=== PATIENT | female | born 1940 | race Caucasian/White ===

== ENCOUNTER → 2019-04-12 11:56 | Outpatient (BNVA) | payer MEDICARE, SELFPAY | PROVIDERS: Family Provider Nurse Practitioner Family; Visit Provider Nurse Practitioner Family | DX: E53.8 Deficiency of other specified B group vitamins (principal); E83.42 Hypomagnesemia; E03.9 Hypothyroidism, unspecified | CPT/HCPCS: 80053; 82607; 83735; 84443; 85025 ==

== ENCOUNTER → 2019-07-04 10:11 | Outpatient (BNVA) | payer MEDICARE, SELFPAY | PROVIDERS: Family Provider Nurse Practitioner Family; Visit Provider Podiatrist Foot & Ankle Surgery | DX: G89.18 Other acute postprocedural pain (principal); S99.921A Unspecified injury of right foot, initial encounter; X58.XXXA Exposure to other specified factors, initial encounter | CPT/HCPCS: 73630; A6446 ==

== ENCOUNTER → 2019-07-10 11:35 | Outpatient (BNVA) | payer MEDICARE, SELFPAY | PROVIDERS: Family Provider Nurse Practitioner Family; Visit Provider Nurse Practitioner Family | DX: R53.83 Other fatigue (principal); E03.9 Hypothyroidism, unspecified; E55.9 Vitamin D deficiency, unspecified; I10 Essential (primary) hypertension; E53.8 Deficiency of other specified B group vitamins | CPT/HCPCS: 36415; 80053; 80061; 81001; 82306; 83036; 84443; 85025 ==

== ENCOUNTER → 2019-09-17 16:57 | Outpatient (BNVA) | payer MEDICARE, SELFPAY | PROVIDERS: Family Provider Nurse Practitioner Family; Visit Provider Nurse Practitioner Family | DX: E03.9 Hypothyroidism, unspecified (principal); J22 Unspecified acute lower respiratory infection; R53.1 Weakness | CPT/HCPCS: 71046 ==

== ENCOUNTER → 2019-10-12 11:14 | Outpatient (BNVA) | payer MEDICARE, SELFPAY | PROVIDERS: Family Provider Nurse Practitioner Family; Visit Provider Nurse Practitioner Family | DX: E03.9 Hypothyroidism, unspecified (principal); D64.9 Anemia, unspecified; R53.83 Other fatigue; E53.8 Deficiency of other specified B group vitamins; Z79.899 Other long term (current) drug therapy | CPT/HCPCS: 80053; 81003; 82270; 82607; 83036; 83550; 83921; 84443; 85025 ==

== ENCOUNTER → 2020-01-09 11:48 | Outpatient (BNVA) | payer MEDICARE, SELFPAY | PROVIDERS: Family Provider Nurse Practitioner Family; Visit Provider Nurse Practitioner Family | DX: N39.0 Urinary tract infection, site not specified (principal); A49.9 Bacterial infection, unspecified | CPT/HCPCS: 81003; 87086 ==

== ENCOUNTER → 2020-02-11 15:05 | Outpatient (BNVA) | payer MEDICARE, SELFPAY | PROVIDERS: Family Provider Nurse Practitioner Family; Visit Provider Family Medicine | DX: R06.2 Wheezing (principal) | CPT/HCPCS: 71046 ==

== ENCOUNTER 2020-02-18 18:29 | Emergency (ER) | payer MEDICARE, SELFPAY ==
[2020-02-18 18:34] VITALS: BP 177/80; PULSE 69; RESP 18; TEMP 36.4; O2SAT 96; BMI 24.1
--- NOTE | 2020-02-18 23:04 | ED_ITS ---
HPI - Extremity Problem General: Chief complaint: Extremity Problem,Nontraumatic Stated complaint: possible blood clot Time Seen by Provider: 02/18/20 22:07 History of Present Illness: HPI Narrative: Patient is an 80-year-old female comes to the ED with left leg pain. Pain started a couple days ago. She denies any trauma or accident to cause pain. She says she has a history of some lower back pain and with the last couple days started developing pain in left leg. She says the pain is a burning pain and it radiates down left leg. Patient is able to ambulate on the leg but it does cause some pain and discomfort. Denies any history of PE or blood clots and is not currently on any blood thinner. Associated symptoms: Deny chest pain, fever(s) or rash Review of Systems Const: Denies: fever(s), chills or fatigue Eyes: Denies: change in vision or eye discomfort ENMT: Denies: throat pain, odynophagia, nasal discharge or nasal congestion Card: Denies: chest pain, palpitations, edema, swelling of feet/ankles, dyspnea on exertion or orthopnea Resp: Denies: dyspnea, productive cough or non-productive cough GI: Denies: abdominal pain, nausea, vomiting, diarrhea, constipation or hematochezia : Denies: flank pain, dysuria or hematuria Musc: Reports: back pain and extremity pain (Left leg pain); Denies: neck pain or extremity swelling Skin/Breast: Denies: rash or new lesions Neuro: Denies: headache(s), numbness in extremities or weakness in extremities [facility] ED PFSH: Medical History Anemia Depression Exposure to COVID-19 virus Fatigue Hypothyroid Inflammation of toenail of left foot Lower respiratory infection Medication management Need for pneumococcal vaccination Otitis externa Shortness of breath UTI (urinary tract infection), bacterial Vitamin B 12 deficiency Physical Exam Const: COMMON NORMALS: patient oriented x3 HENMT: COMMON NORMALS: normocephalic HEAD & SCALP: normocephalic MOUTH: Normal oral and palatal mucosa present THROAT: posterior oropharynx normal and uvula midline Neck/C-Spine: COMMON NORMALS: supple GENERAL: Yes normal visual inspection Resp: COMMON NORMALS: normal respiratory effort, No retractions, No use of accessory muscles and clear to auscultation bilaterally AUSCULTATION: clear to auscultation bilaterally Cardio: COMMON NORMALS: regular rate, regular rhythm, S1 normal heart sound present, S2 normal heart sound present, No gallops present (Cardio), No clicks present (Cardio), No murmurs present (Cardio) and Peripheral pulses 2+ throughout RATE: regular rate RHYTHM: regular rhythm HEART SOUNDS: S1 normal heart sound present and S2 normal heart sound present PERIPHERAL PULSES: Peripheral pulses 2+ throughout GI: COMMON NORMALS: Normal to inspection, nondistended, normoactive bowel sounds present, Soft to palpation, non-tender and no masses PALPATION: Yes Soft to palpation : COMMON NORMALS: Yes no CVA tenderness BLADDER/KIDNEY EXAM: Yes no CVA tenderness Back/Pelvis: COMMON NORMALS: no CVA tenderness LUMBAR SPINE/LOWER BACK: Yes pain with ROM, No lumbar spinal tenderness, Yes paraspinal muscle tenderness and Yes straight leg raise positive left Extremity: COMMON NORMALS: normal to inspection, no calf tenderness and no pedal edema Neuro: COMMON NORMALS: patient oriented x3 and moves all extremities Skin: GENERAL SKIN EXAM: dry skin Course Vital Signs: Vital signs: Vital Signs Temperature 97.5 F L 02/18/20 18:34 Pulse Rate 90 02/19/20 01:18 Respiratory Rate 16 02/19/20 01:18 Blood Pressure 121/69 02/19/20 01:18 Pulse Oximetry 99 02/19/20 01:18 MDM - Extremity (Nontraumatic) MDM Narrative: Medical decision making narrative: Patient is an 80-year-old female comes to the ED left leg pain. Patient denies any traumatic injury or accident to cause acute pain. She does states she has some lower back pain chronically just turned developing the radiating down left leg pain. Exam findings suggestive of lumbar radiculopathy. Ultrasound venous duplex of left lower extremity showed no DVTs or blood clot. Patient was diagnosed lumbar radiculopathy and she was discharged with a prescription for Medrol Dosepak, cyclobenzaprine, and ibuprofen 800s. She was told to apply heat or cold pack on lower back and to stretch lower back daily. Return to ED precautions given. Follow-up with PCP in 7 to 10 days. Patient understood agree with plan. Imaging Data^: US Vascular: Attestation: I personally reviewed and interpreted this imaging study as follows: Radiologist's impression: Left lower extremity venous duplex?prelim report no DVTs or blood clots seen. Discharge Plan Discharge Patient Disposition: Home Clinical Impression: Lumbar radiculopathy Condition: Stable Prescriptions: New methylprednisolone 4 mg tablets,dose pack See Rx Instructions .ROUTE .COMPLEX Qty: 21 RF: 0 cyclobenzaprine 5 mg tablet 5 mg PO TID PRN (Reason: muscle spasm) Qty: 30 RF: 0 ibuprofen 800 mg tablet 800 mg PO Q8H PRN (Reason: pain) Qty: 21 RF: 0 No Action pneumococcal 23-pradip ps vaccine 25 mcg/0.5 mL solution 0.5 ml IM ONCE Qty: 1 RF: 0 prednisone 20 mg tablet 20 mg PO BID 5 Days Qty: 10 RF: 0 levofloxacin 750 mg tablet 750 mg PO DAILY 6 Days Qty: 6 RF: 0 levothyroxine 100 mcg capsule 100 mcg PO DAILY 30 Days Qty: 30 RF: 2 Discharge Orders: Discharge ED (Routine); Ordered 02/19/20 Ordered By: Masoud Hood Discharge Diet: Regular Discharge Activity: Increase activity as tolerated Patient Instructions: Lumbar Radiculopathy (ED) Activity Restrictions/Additional Instructions: Follow-up with medical provider as directed in 7 to 10 days for reevaluation. Stretch and massage lower back daily. Apply heat or cold pack on lower back to help with symptoms as well. Take medications as prescribed. Cyclobenzaprine is a muscle relaxer and can cause some drowsiness so take at night before bed. Use muscle relaxer with caution during the day. Return to the ER or your medical provider if condition worsens. Please read and understand discharge instructions. If any questions, please ask. Coding Level of Care Code ED [employer] for Tc Fwd Exam Comprehensive
[2020-02-18] MEDS: ketorolac 30 mg/mL INJ 60 MG IM (23:57)
--- NOTE | 2020-02-19 | USCV_ITS ---
Beatriz Reyes Age: 80 Gender: F : 1940 Exam Date: 02/19/2020 00:24 Ordering Phys: Masoud Hood Technologist: Genna Cain Exam Location: [facility] Indication: LT LEG PAIN HISTORY: Lower extremity pain. PROCEDURES: Venous duplex imaging was performed in only the left lower extremity. The following venous structures were evaluated: common femoral vein, profunda vein, proximal portion of the greater saphenous vein, superficial femoral vein, and the popliteal vein. In addition, the posterior tibial and peroneal trunk were evaluated. FINDINGS: Normal 2-D Doppler and augmentation and compressibility throughout the lower extremity venous structures. Additional imaging through the proximal calf veins also reveals no thrombus. Limited evaluation of the greater saphenous vein is patent with no thrombus.. CONCLUSIONS No evidence of left lower extremity DVT. Srinivas Ellis MD (Electronically Signed) Final Date: 19 February 2020 12:40 S
[2020-02-19 01:18] VITALS: BP 121/69; PULSE 90; RESP 16; O2SAT 99
== END 2020-02-19 01:18 | disposition home or self-care (01) ==
PROVIDERS: Emergency Provider Physician Assistant
DX: M54.16 Radiculopathy, lumbar region (principal)
CPT/HCPCS: 12345; 93971; 96372; 99281; 99283; J1885; J2930

== ENCOUNTER → 2020-06-03 11:00 | Outpatient (BNVA) | payer MEDICARE, SELFPAY | PROVIDERS: PCP Nurse Practitioner Family; Visit Provider Nurse Practitioner Family | DX: M54.5 Low back pain (principal); M54.6 Pain in thoracic spine; E03.9 Hypothyroidism, unspecified | CPT/HCPCS: 80053; 84439; 84443; 85025 ==

== ENCOUNTER → 2020-06-12 09:29 | Outpatient (BNVA) | payer MEDICARE, SELFPAY | PROVIDERS: PCP Nurse Practitioner Family; Visit Provider Nurse Practitioner Family | DX: M54.5 Low back pain (principal); M54.6 Pain in thoracic spine; G89.29 Other chronic pain | CPT/HCPCS: 72072; 72114 ==

== ENCOUNTER → 2020-08-15 12:15 | Outpatient (BNVA) | payer MEDICARE, SELFPAY | PROVIDERS: PCP Nurse Practitioner Family; Visit Provider Nurse Practitioner Family | DX: K13.79 Other lesions of oral mucosa (principal); K11.20 Sialoadenitis, unspecified | CPT/HCPCS: 87070; 87077 ==

== ENCOUNTER → 2020-12-23 11:33 | Outpatient (BNVA) | payer MEDICARE, SELFPAY | PROVIDERS: PCP Nurse Practitioner Family; Visit Provider Nurse Practitioner Family | DX: R53.83 Other fatigue (principal); D64.9 Anemia, unspecified; E53.8 Deficiency of other specified B group vitamins; E03.9 Hypothyroidism, unspecified; Z79.899 Other long term (current) drug therapy; E55.9 Vitamin D deficiency, unspecified; E78.5 Hyperlipidemia, unspecified; I49.9 Cardiac arrhythmia, unspecified; R31.9 Hematuria, unspecified | CPT/HCPCS: 80053; 80061; 81003; 82306; 82607; 82728; 82746; 83036; 83550; 83921; 84443; 85025; 86038; 86140; 87086 ==

== ENCOUNTER → 2021-01-28 10:46 | Outpatient (BNVA) | payer MEDICARE, SELFPAY | PROVIDERS: PCP Nurse Practitioner Family; Visit Provider Internal Medicine | DX: R76.8 Other specified abnormal immunological findings in serum (principal); M25.50 Pain in unspecified joint; M48.10 Ankylosing hyperostosis [Forestier], site unspecified; E03.9 Hypothyroidism, unspecified; Z11.59 Encounter for screening for other viral diseases; Z87.891 Personal history of nicotine dependence | CPT/HCPCS: 99204 ==

== ENCOUNTER 2021-01-28 12:21 | Outpatient (CLI) | payer MEDICARE, SELFPAY ==
--- NOTE | 2021-01-28 12:40 | XRR_ITS ---
PROCEDURE INFORMATION: Exam: XR Cervical Spine Exam date and time: 01/28/2021 12:40 PM Age: 80 years old Clinical indication: Neck pain; Additional info: M25.50 - pain in unspecified joint TECHNIQUE: Imaging protocol: XR of the cervical spine. Views: 2 or 3 views. COMPARISON: CR XR thoracic spine 3V* [id number] 06/12/2020 9:44 AM FINDINGS: Bones/joints: There is moderate osteoarthritis with multilevel intervertebral disc space narrowing and bone spurs present. No acute fracture. Normal alignment. There is no significant instability with flexion and extension maneuvers. Soft tissues: Unremarkable. XR/XR cervical spine fl/ex [id number] IMPRESSION: 1. No acute findings. 2. Moderate osteoarthritis
--- NOTE | 2021-01-28 12:40 | XRR_ITS ---
PROCEDURE INFORMATION: Exam: XR Left Shoulder Exam date and time: 01/28/2021 12:40 PM Age: 80 years old Clinical indication: Pain; Shoulder; Left; Additional info: M25.50 - pain in unspecified joint TECHNIQUE: Imaging protocol: XR Left shoulder. Views: 2 or more views. COMPARISON: CR XR chest 2V* [id number] 02/11/2020 3:18 PM FINDINGS: Bones/joints: There is a chronic deformity involving the left humeral head. No acute bony abnormalities seen. Soft tissues: Normal. XR/XR shoulder LT min 2V* [id number] IMPRESSION: 1. No acute findings. 2. Chronic bone deformity left humeral head
--- NOTE | 2021-01-28 12:40 | XR_ITS ---
WS: [id number] Exam: XR hand LT 2V [id number] Date/Time of Exam: 01/28/2021 12:55 PM Reason For Exam: M25.50 - Pain in unspecified joint No fracture or dislocation. Moderate degenerative changes in the IP joints. Degenerative change at th e CMC joint of the thumb. No soft tissue foreign bodies are seen. XR/XR hand LT 2V [id number] IMPRESSION: 1. Degenerative changes as noted above. 2. No fracture or dislocation.
[2021-01-28 13:49] LABS: C Reactive Protein 2.3 mg/L (0.0-4.9); Complement C3 139 mg/dL (90-180); Phosphorus 2.6 mg/dL (2.5-4.5)
[2021-01-28 13:56] LABS: Free T4 Free Thyroxine 1.58 ng/dL (0.82-1.77)
[2021-01-28 14:24] LABS: Hepatitis B Core AB, Total Non-Reactive (Nonreactive); Hepatitis B Surface Antigen Non-Reactive (Nonreactive); Hepatitis C Virus Antibody Non-Reactive (Nonreactive)
[2021-01-28 14:35] LABS: Calcium 9.6 mg/dL (8.5-10.5)
[2021-01-28 15:25] LABS: Parathyroid Hormone 83.9 pg/mL (15-65)
[2021-01-29 11:46] LABS: COMPLEMENT COMPONENT C3C 136 mg/dL; COMPLEMENT COMPONENT C4C 26 mg/dL
[2021-01-29 13:37] LABS: THYROID PEROXIDASE ANTIBODIES <1 IU/mL (<9)
[2021-01-29 15:29] LABS: Erythrocyte Sedimentation Rate 6 mm/hr (0-15)
[2021-01-29 16:03] LABS: Cyclic Citrullinated Peptide <16 UNITS
[2021-01-29 16:37] LABS: JO-1 ANTIBODY <1.0 NEG AI (<1.0 NEG); RNP ANTIBODY <1.0 NEG AI (<1.0 NEG); SCL-70 ANTIBODY <1.0 NEG AI (<1.0 NEG); SJOGREN'S ANTIBODY (SS-A) <1.0 NEG AI (<1.0 NEG); SM ANTIBODY <1.0 NEG AI (<1.0 NEG); SS-B <1.0 NEG AI (<1.0 NEG)
[2021-01-30 12:23] LABS: COMPLEMENT, TOTAL (CH50) >60 U/mL (31-60)
[2021-01-30 17:06] LABS: ANA SCREEN, IFA POSITIVE (NEGATIVE); ANA TITER > OR = 1:1280 titer; Anti-Nuclear AB Pattern #3 Nuclear, Speckled
[2021-01-31 17:22] LABS: DNA AB (DS) CRITHIDIA,IFA NEGATIVE (NEGATIVE)
== END 2021-01-28 12:22 | disposition home or self-care (01) ==
LOC: RAD 12:32
PROVIDERS: PCP Nurse Practitioner Family; Visit Provider Internal Medicine
DX: E55.9 Vitamin D deficiency, unspecified (principal); M25.50 Pain in unspecified joint; R76.8 Other specified abnormal immunological findings in serum; E03.9 Hypothyroidism, unspecified; Z11.59 Encounter for screening for other viral diseases
CPT/HCPCS: 36415; 72040; 73030; 73120; 82310; 83970; 84100; 84439; 85651; 86140; 86160; 86162; 86200; 86235; 86255; 86376; 86431; 86704; 86803; 87340

== ENCOUNTER → 2021-02-12 14:14 | Outpatient (BNVA) | payer MEDICARE, SELFPAY | PROVIDERS: PCP Nurse Practitioner Family; Referring Provider Internal Medicine; Visit Provider Anesthesiology Pain Medicine | DX: G89.29 Other chronic pain (principal); M51.16 Intervertebral disc disorders with radiculopathy, lumbar region; M47.816 Spondylosis without myelopathy or radiculopathy, lumbar region; M25.50 Pain in unspecified joint; M48.10 Ankylosing hyperostosis [Forestier], site unspecified; R76.8 Other specified abnormal immunological findings in serum; Z79.899 Other long term (current) drug therapy | CPT/HCPCS: 99205 ==

== ENCOUNTER → 2021-02-27 09:25 | Outpatient (BNVA) | payer MEDICARE, SELFPAY | PROVIDERS: PCP Nurse Practitioner Family; Visit Provider Internal Medicine | DX: R76.8 Other specified abnormal immunological findings in serum (principal); E34.9 Endocrine disorder, unspecified; E03.9 Hypothyroidism, unspecified; E55.9 Vitamin D deficiency, unspecified; M48.10 Ankylosing hyperostosis [Forestier], site unspecified | CPT/HCPCS: 99214 ==

== ENCOUNTER → 2021-03-23 16:13 | Outpatient (BNVA) | payer MEDICARE, SELFPAY | PROVIDERS: PCP Nurse Practitioner Family; Visit Provider Nurse Practitioner Family | DX: E03.9 Hypothyroidism, unspecified (principal) | CPT/HCPCS: 80053; 84443; 85025 ==

== ENCOUNTER → 2021-04-13 10:43 | Outpatient (BNVA) | payer MEDICARE, SELFPAY | PROVIDERS: PCP Nurse Practitioner Family; Visit Provider Nurse Practitioner Family | DX: M25.50 Pain in unspecified joint (principal); R76.8 Other specified abnormal immunological findings in serum; Z79.899 Other long term (current) drug therapy | CPT/HCPCS: 80053; 85025; 85651; 86140 ==

== ENCOUNTER → 2021-09-21 14:36 | Outpatient (BNVA) | payer MEDICARE, SELFPAY | PROVIDERS: PCP Nurse Practitioner Family; Visit Provider Nurse Practitioner | DX: R53.83 Other fatigue (principal); R79.89 Other specified abnormal findings of blood chemistry | CPT/HCPCS: 80053; 81000; 84443; 85025; 87086 ==

== ENCOUNTER → 2022-04-21 11:20 | Outpatient (BNVA) | payer MEDICARE, SELFPAY | PROVIDERS: PCP Nurse Practitioner Family; Visit Provider Nurse Practitioner Family | DX: E03.9 Hypothyroidism, unspecified (principal); L60.3 Nail dystrophy; Z79.899 Other long term (current) drug therapy; H69.80 Other specified disorders of Eustachian tube, unspecified ear | CPT/HCPCS: 80053; 80061; 84443; 85025 ==

== ENCOUNTER 2022-12-11 15:39 | Emergency (ER) | payer MEDICARE, SELFPAY ==
[2022-12-11 15:56] VITALS: BP 171/79; PULSE 67; RESP 15; TEMP 36.7; O2SAT 97
--- NOTE | 2022-12-11 17:01 | CTR_ITS ---
PROCEDURE INFORMATION: Exam: CT Head Without Contrast Exam date and time: 12/11/2022 5:44 PM Age: 82 years old Clinical indication: Dizziness and visual disturbance; Additional info: Dizzy, difficulty walking, blurred vision, HTN TECHNIQUE: Imaging protocol: Computed tomography of the head without contrast. Radiation optimization: All CT scans at this facility use at least one of these dose optimization techniques: automated exposure control; mA and/or kV adjustment per patient size (includes targeted exams where dose is matched to clinical indication); or iterative reconstruction. REPORTING DATA: Count of CT and Cardiac NM exams in prior 12 months: This patient has received 0 known CTs and 0 known cardiac nuclear medicine studies in the 12 months prior to the current study. COMPARISON: CR XR cervical spine fl/ex [id number] 01/28/2021 12:45 PM RADIATION DOSE METRICS: Total DLP (mGy-cm): 1118.3 FINDINGS: Brain: Moderate diffuse cortical volume loss. Severe hypodensities in supratentorial periventricular and subcortical white matter, consistent with microangiopathy. No intracranial hemorrhage. Cerebral ventricles: No ventriculomegaly. Paranasal sinuses: Visualized sinuses are unremarkable. No fluid levels. Mastoid air cells: Visualized mastoid air cells are well aerated. Orbital cavities: Prior cataract surgery. Nasal cavity: Rightward deviation of the bony nasal septum. Bones/joints: No fracture. Soft tissues: Unremarkable. Vasculature: No hyperdense artery. CT/CT head wo con* [id number] IMPRESSION: No acute intracranial abnormality.
--- NOTE | 2022-12-11 17:01 | ECG_ITS ---
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 Measurements Intervals Riner Rate: 59 P: 23 AL: 228 QRS: -29 QRSD: 106 T: 52 QT: 417 QTc: 414 Interpretive Statements SINUS BRADYCARDIA WITH FIRST DEGREE AV BLOCK SEPTAL MYOCARDIAL INFARCTION , OF INDETERMINATE AGE [40+ ms Q WAVE IN V1/V2] Compared to ECG 06/16/2018 20:59:07 Myocardial infarct finding now present Electronically Signed On 12-12-2022 6:04:40 CDT by Tiffany Gordon M.D. [id number]
--- NOTE | 2022-12-11 17:01 | XRR_ITS ---
PROCEDURE INFORMATION: Exam: XR Chest Exam date and time: 12/11/2022 5:19 PM Age: 82 years old Clinical indication: Other: HTN; Dizziness; AMS; Prior surgery; Surgery date: 6+ months; Surgery type: Left mastectomy TECHNIQUE: Imaging protocol: Radiologic exam of the chest. Views: 1 view. COMPARISON: CR XR chest 2V* [id number] 02/11/2020 3:18 PM FINDINGS: Lungs: Calcified granulomas in both lungs. Changes of emphysema. No consolidation. Pleural spaces: Unremarkable. No pleural effusion. No pneumothorax. Heart/Mediastinum: Unremarkable. No cardiomegaly. Bones/joints: Old left rib fractures. Soft tissues: Multiple radiopaque densities projecting over the upper chest are presumably artifacts in the patient's clothing. Left mastectomy. XR/XR chest 1V portable [id number] IMPRESSION: No acute findings.
[2022-12-11 18:06] LABS: INR 0.95 (0.8-1.2)
[2022-12-11 18:10] VITALS: BP 180/80; PULSE 62; RESP 16; O2SAT 98
--- NOTE | 2022-12-11 18:13 | ED_ITS ---
HPI - General Adult General: Chief complaint: General Medical Stated complaint: possible ams Time Seen by Provider: 12/11/22 17:01 History of Present Illness: Patient presents to the ER for possible TIA/altered mental status. Earlier this morning patient was talking and she was speaking within Slovak accent and then everything started coming out gibberish. Patient family said this lasted all approximately 30 minutes or so before patient resolved and started speaking normally. This was about 3 hours ago. Patient has no history of TIAs or CVAs in the past. Patient is totally back to normal with no neurodeficits noted now. Patient does take 81 mg aspirin daily as well as a atorvastatin 40 mg nightly. Patient is on levothyroxine for thyroid. Patient has been having high blood pressure during her ER stay with no history of it and is on no blood pressure medicine. [facility] ED PFSH: Medical History (Updated 12/11/22 @ 20:12 by Sanjiv Paz DO) Anemia Arrhythmia Arthralgia Centromere antibody positive Depression DISH (diffuse idiopathic skeletal hyperostosis) Exposure to COVID-19 virus Facet arthropathy, lumbar Fatigue Hematuria Hx of breast cancer Hyperlipemia Hypothyroid Increased PTH level Inflammation of toenail of left foot Low back pain potentially associated with radiculopathy Lower respiratory infection Lower respiratory infection Lumbar disc disease with radiculopathy Medication management Need for pneumococcal vaccination Onychodystrophy Otitis externa Positive antinuclear antibody Shortness of breath Sialadenitis Thoracic back pain UTI (urinary tract infection), bacterial Vitamin B 12 deficiency Vitamin D deficiency Surgical History Hx of left mastectomy Family History Family/Other Stroke Denies family history of Rheumatoid arthritis Diabetes Lupus Hyperlipidemia Heart attack Cancer Hypertension Social History Smoking and tobacco/nicotine status: never used tobacco/nicotine Second hand smoke exposure: No Alcohol intake: never Physical Exam Const: COMMON NORMALS: no acute distress, average body habitus, patient oriented x3, no limitations, healthy appearing, alert and well nourished HENMT: COMMON NORMALS: normocephalic, atraumatic, external ears normal, Normal external nose present, moist oral mucous membranes and oropharynx normal; hearing grossly not normal bilaterally (Hard of hearing) HEAD & SCALP: normocephalic and atraumatic NOSE: Normal external nose present EXTERNAL EAR: Yes external ears normal Eye: COMMON NORMALS: Equal, round and reactive pupils present, EOMs intact bilaterally, conjunctivae normal and no scleral icterus CONJUNCTIVA: Yes conjunctivae normal PUPIL: Yes Equal, round and reactive pupils present Neck/C-Spine: COMMON NORMALS: full ROM, no lymphadenopathy, supple, no meningeal signs, no JVD and Thyroid normal THYROID: Thyroid normal Lymph: LYMPHATIC: no lymphadenopathy noted Chest: COMMONS NORMALS: normal inspection of the chest and normal palpation of entire chest wall Resp: COMMON NORMALS: normal respiratory effort, No retractions, No use of accessory muscles and clear to auscultation bilaterally AUSCULTATION: clear to auscultation bilaterally Cardio: COMMON NORMALS: no JVD, regular rate, regular rhythm, S1 normal heart sound present, S2 normal heart sound present, No gallops present (Cardio), No clicks present (Cardio), No murmurs present (Cardio) and No rub (Cardio) RATE: regular rate RHYTHM: regular rhythm HEART SOUNDS: S1 normal heart sound present and S2 normal heart sound present GI: COMMON NORMALS: Normal to inspection, nondistended, normoactive bowel sounds present, Soft to palpation, non-tender, No hepatosplenomegaly present and no masses PALPATION: Yes Soft to palpation and Yes No hepatosplenomegaly present : COMMON NORMALS: Yes no CVA tenderness BLADDER/KIDNEY EXAM: Yes no CVA tenderness Back/Pelvis: COMMON NORMALS: no CVA tenderness Neuro: COMMON NORMALS: patient oriented x3 SENSORIUM/ORIENTATION: Yes alert MENINGEAL SIGNS: Yes no meningeal signs Course Vital Signs: Vital signs: Vital Signs Temperature 98.0 F 12/11/22 15:56 Pulse Rate 55 L 12/11/22 19:59 Respiratory Rate 16 12/11/22 19:59 Blood Pressure 155/75 12/11/22 19:59 Pulse Oximetry 99 12/11/22 19:59 Oxygen Delivery Me thod Room Air 12/11/22 15:56 MDM - General Adult Medical Decision Making Presents to the ER with what sounds like a TIA type episode. Chest x-ray was negative head CT was negative lab work was negative except for urine which could show a mild UTI however patient just finished antibiotics and family wants to wait for culture. I think this is acceptable. Patient will be discharged and referred back to her family practice doctor for potential need for MRI and/or neurology consult. Differential Diagnosis TIA, CVA, UTI, hypertensive encephalopathy, Medical Records I reviewed the patient's medical records. Lab Data I reviewed the patient's lab results. 12/11/22 18:55 12/11/22 17:32 Radiology Impressions Chest X-Ray 12/11/22 17:01 IMPRESSION: No acute findings. Head CT 12/11/22 17:01 IMPRESSION: No acute intracranial abnormality. Laboratory Results WBC 9.45 10^3/uL (3.29-11.43) 12/11/22 18:55 Corrected WBC Cancelled 12/11/22 17:32 RBC 4.70 10^6/uL (3.85-5.65) 12/11/22 18:55 Hgb 14.00 g/dL (11.27-16.99) 12/11/22 18:55 Hct 43.2 % (36-47) 12/11/22 18:55 MCV 91.9 fl (85-98) 12/11/22 18:55 MCH 29.8 pg (27-33) 12/11/22 18:55 MCHC 32.4 g/dL (30-55) 12/11/22 18:55 RDW 13.1 % (12.1-15.1) 12/11/22 18:55 Plt Count 232 10^3/cmm (157-399) 12/11/22 18:55 MPV 9.2 fL (7.4-10.4) 12/11/22 18:55 Gran % Cancelled 12/11/22 17:32 Neut % (Auto) 56.6 % 12/11/22 18:55 Lymph % (Auto) 31.4 % 12/11/22 18:55 [place] % (Auto) 8.1 % 12/11/22 18:55 Eos % (Auto) 3.0 % 12/11/22 18:55 Baso % (Auto) 0.7 % 12/11/22 18:55 Neut # (Auto) 5.34 10^3/uL (1.8-7.7) 12/11/22 18:55 Lymph # (Auto) 3.0 10^3/uL (0.8-4.8) 12/11/22 18:55 [place] # (Auto) 0.8 10^3/uL (0.2-0.9) 12/11/22 18:55 Eos # (Auto) 0.3 10^3/uL (0.0-0.8) 12/11/22 18:55 Baso # (Auto) 0.1 10^3/uL (0.0-0.1) 12/11/22 18:55 Absolute Gran (auto) Cancelled 12/11/22 17:32 Nucleated RBC % (auto) 0 % 12/11/22 18:55 Nucleated RBCs # 0.0 /100WBC 12/11/22 18:55 PT 13.00 SECONDS (12.1-14.9) 12/11/22 17:32 INR 0.95 (0.8-1.2) 12/11/22 17:32 Sodium 137 mmol/L (136-145) 12/11/22 17:32 Potassium 4.0 mmol/L (3.5-5.1) 12/11/22 17:32 Chloride 103 mmol/L (98-107) 12/11/22 17:32 Carbon Dioxide 25 mmol/L (22-29) 12/11/22 17:32 Anion Gap 13.0 (5-19) 12/11/22 17:32 BUN 14 mg/dL (8-23) 12/11/22 17:32 Creatinine 0.7 mg/dL (0.5-0.9) 12/11/22 17:32 GFR Calculation Not Reportable 12/11/22 17:32 Glucose 81 mg/dL (65-115) 12/11/22 17:32 Calculated Osmolality 284 mOsm/kg (285-295) L 12/11/22 17:32 Calcium 10.2 mg/dL (8.5-10.5) 12/11/22 17:32 Magnesium 2.2 mg/dL (1.7-2.3) 12/11/22 17:32 Total Bilirubin 0.5 mg/dL (0.15-1.2) 12/11/22 17:32 AST 17 U/L (0-32) 12/11/22 17:32 ALT 11 U/L (0-33) 12/11/22 17:32 Alkaline Phosphatase 72 U/L (35-105) 12/11/22 17:32 C-Reactive Protein 6.7 mg/L (0.0-4.9) H 12/11/22 17:32 Total Protein 6.9 g/dL (6.6-8.7) 12/11/22 17:32 Albumin 4.0 g/dL (3.5-5.2) 12/11/22 17:32 Globulin 2.9 g/dL (1.3-4.6) 12/11/22 17:32 TSH 1.06 uIU/mL (0.27-4.20) 12/11/22 17:32 Urine Color Yellow (Yellow) 12/11/22 15:54 Urine Appearance Clear (CLEAR) 12/11/22 15:54 Urine pH 6.5 (5-7) 12/11/22 15:54 Ur Specific [place] 1.010 (1.005-1.030) 12/11/22 15:54 Urine Protein Neg (Negative) 12/11/22 15:54 Urine Glucose (UA) Norm (Normal) 12/11/22 15:54 Urine Ketones Negative (Negative) 12/11/22 15:54 Urine Blood 2+ (Negative) H 12/11/22 15:54 Urine Nitrate Negative (Negative) 12/11/22 15:54 Urine Bilirubin Neg (Negative) 12/11/22 15:54 Urine Urobilinogen Norm mg/dL (Negative) 12/11/22 15:54 Ur Leukocyte Esterase 1+ (Negative) H 12/11/22 15:54 Urine RBC Rare /hpf (0-2) 12/11/22 15:54 Urine WBC 5-10 /hpf (0-5) H 12/11/22 15:54 Ur Squamous Epith Cells 0-4 /hpf (0-5) H 12/11/22 15:54 Amorphous Sediment Not Reportable 12/11/22 15:54 Urine Bacteria Trace /hpf (NONE) 12/11/22 15:54 Urine Mucus Trace /hpf 12/11/22 15:54 All radiology interpretation(s) finalized by discharge EKG Data EKG 1: I personally reviewed and interpreted this EKG as follows: EKG interpretation date: 12/11/22 EKG interpretation time: 17:29 Prior EKG tracings: not available for review Interpretation: EKG showed ventricular rate 59 beats minute, ID interval 228, QRS duration 106, QTc of 416, sinus bradycardia with a first-degree AV block, Computer generated interpretation: Chest X-Ray 12/11/22 17:01 IMPRESSION: No acute findings. Head CT 12/11/22 17:01 IMPRESSION: No acute intracranial abnormality. Discharge Plan Discharge Patient Disposition: Home Clinical Impression: Brain TIA Hypothyroidism Qualifiers: Hypothyroidism type: unspecified Qualified Code(s): E03.9 - Hypothyroidism, unspecified Hypertension Qualifiers: Hypertension type: unspecified Qualified Code(s): I10 - Essential (primary) hypertension Urinary tract infection Qualifiers: Urinary tract infection type: site unspecified Hematuria presence: with hematuria Qualified Code(s): N39.0 - Urinary tract infection, site not specified Condition: Stable Prescriptions: No Action cephalexin 500 mg capsule 500 mg PO TID 5 Days Qty: 15 0RF atorvastatin 40 mg tablet 40 mg PO DAILY 90 Days Qty: 90 0RF aspirin 81 mg tablet,delayed release (DR/EC) 81 mg PO DAILY 90 Days Qty: 90 0RF cholecalciferol (vitamin D3) 25 mcg (1,000 unit) capsule 25 mcg PO DAILY 90 Days Qty: 90 0RF levothyroxine 112 mcg tablet See Rx Instructions .ROUTE .COMPLEX Qty: 90 1RF Dose Instruction: TAKE 1 TABLET BY MOUTH EVERY DAY Rx Instructions: TAKE 1 TABLET BY MOUTH EVERY DAY Discharge Orders: Discharge ED (Routine); Ordered 12/11/22 Ordered By: Sanjiv Paz Referrals: Ron Wright FNP [Primary Care Provider] - 1 week Patient Instructions: Hypertension (ED), TIA Activity Restrictions/Additional Instructions: All of your exam at the ER including labs x-ray and head CT, normal except for your urine. Your urine showed you may still have a urinary tract infection however this is not guaranteed. It will be sent off for culture, in 2 to 3 days you may hear from us if you need to be placed on another antibiotic. In the meantime please follow-up with your family practice doctor in the next 7 days you may benefit from an MRI and/or referral to a neurologist. Coding Level of Care Code ED Grain Elevator Motor Starter for Tc Palafox
[2022-12-11 18:21] LABS: Alanine Aminotransferase 11 U/L (0-33); Alkaline Phosphatase 72 U/L (35-105); Aspartate Amino Transferase 17 U/L (0-32); Blood Urea Nitrogen 14 mg/dL (8-23); C Reactive Protein 6.7 mg/L (0.0-4.9); Calcium 10.2 mg/dL (8.5-10.5); Carbon Dioxide 25 mmol/L (22-29); Chloride 103 mmol/L (98-107); Globulin 2.9 g/dL (1.3-4.6); Glucose 81 mg/dL (65-115); Magnesium 2.2 mg/dL (1.7-2.3); Osmolality Calculated 284 mOsm/kg (285-295); Sodium 137 mmol/L (136-145); Thyroid Stimulating Hormone 1.06 uIU/mL (0.27-4.20); Total Bilirubin 0.5 mg/dL (0.15-1.2); Total Protein 6.9 g/dL (6.6-8.7)
[2022-12-11 18:26] VITALS: BP 211/97; PULSE 62; RESP 16; O2SAT 98
[2022-12-11 18:27] VITALS: BP 211/97
[2022-12-11] MEDS: cloNIDine 0.1 mg Tablet PO (18:27)
[2022-12-11 18:38] LABS: Add Urine Microscopic? YES; Bilirubin Urine Neg (Negative); Blood Urine 2+ (Negative); Glucose Urine UA Norm (Normal); Ketones Urine Negative (Negative); Leukocyte Esterase Urine 1+ (Negative); Nitrate Urine Negative (Negative); Protein Urine Neg (Negative); Urine Appearance Clear (CLEAR); Urine Color Yellow (Yellow); Urobilinogen Urine Norm (Negative); pH Urine 6.5 (5-7)
[2022-12-11 18:41] LABS: Bacteria Urine TRACE /hpf; Mucus Urine TRACE /hpf; RBC Urine RARE /hpf (0-2)
[2022-12-11 18:42] LABS: Add Urine Culture? Yes; Squamous Epithelial Cell Urine 0-4 /hpf (0-5)
[2022-12-11 19:09] LABS: Basophils # 0.1 10^3/uL (0.0-0.1); Basophils % 0.7 %; Eosinophils # 0.3 10^3/uL (0.0-0.8); Hematocrit 43.2 % (36-47); Lymphocytes % 31.4 %; Mean Corpuscular HGB Conc 32.4 g/dL (30-55); Mean Corpuscular Hemoglobin 29.8 pg (27-33); Mean Corpuscular Volume 91.9 fl (85-98); Mean Platelet Volume 9.2 fL (7.4-10.4); Monocytes # 0.8 10^3/uL (0.2-0.9); Monocytes % 8.1 %; Neutrophils # 5.34 10^3/uL (1.8-7.7); Neutrophils % 56.6 %; Nucleated Red Blood Cells % 0 %; Platelet Count 232 10^3/cmm (157-399); Red Cell Distribution Width 13.1 % (12.1-15.1); White Blood Count 9.45 10^3/uL (3.29-11.43)
[2022-12-11 19:59] VITALS: BP 155/75; PULSE 55; RESP 16; O2SAT 99
[2022-12-11 20:43] VITALS: BP 155/75; PULSE 55; RESP 16; O2SAT 99
== END 2022-12-11 20:44 | disposition home or self-care (01) ==
PROVIDERS: Emergency Provider Emergency Medicine; PCP Nurse Practitioner Family
DX: G45.9 Transient cerebral ischemic attack, unspecified (principal); E03.9 Hypothyroidism, unspecified; I10 Essential (primary) hypertension; N39.0 Urinary tract infection, site not specified; Z79.82 Long term (current) use of aspirin; Z85.3 Personal history of malignant neoplasm of breast; E78.5 Hyperlipidemia, unspecified
CPT/HCPCS: 36415; 70450; 71045; 80053; 81001; 83735; 84443; 85025; 85610; 86140; 87086; 93005; 99285

== ENCOUNTER → 2023-02-03 13:00 | Outpatient (BNVA) | payer MEDICARE, SELFPAY | PROVIDERS: PCP Nurse Practitioner Family; Referring Provider Nurse Practitioner Family; Visit Provider Internal Medicine | DX: R07.9 Chest pain, unspecified (principal); I21.29 ST elevation (STEMI) myocardial infarction involving other sites; R41.3 Other amnesia; F03.90 Unspecified dementia, unspecified severity, without behavioral disturbance, psychotic disturbance, mood disturbance, and anxiety; G31.83 Neurocognitive disorder with Lewy bodies; F02.B2 Dementia in other diseases classified elsewhere, moderate, with psychotic disturbance; I44.0 Atrioventricular block, first degree; E78.5 Hyperlipidemia, unspecified; R94.31 Abnormal electrocardiogram [ECG] [EKG] | CPT/HCPCS: 93005; 99204; 99205 ==

== ENCOUNTER 2023-03-28 13:25 | Outpatient (CLI) | payer MEDICARE, SELFPAY ==
--- NOTE | 2023-03-28 13:45 | USCV_ITS ---
Beatriz Reyes Age: 83 Gender: F : 1940 Exam Date: 03/28/2023 13:43 Ordering Phys: Lloyd Moe M.D ([email or web address]) Technologist: CT Exam Location: [facility] – [place] Indication: sob BP: 160 / 90 HR: 60 Rhythm: Sinus Technical Quality: Adequate MEASUREMENTS (Male / Female) Normal Values 2D ECHO LV Chamber Size 4.7 cm RV Chamber Size 3.0 cm LVOT Diameter 2.1 cm LV Ejection Fraction MOD 2C 68.5 % LV Ejection Fraction 2C AL 69.4 % LA Diameter 3.9 cm LA Width 4.7 cm LA Height 5.4 cm RA Width 3.3 cm RA Height 5.3 cm Aorta at Sinotubular Diameter 2.2 cm IVC Diameter 1.6 cm M-MODE Aortic Annulus Diameter 3.1 cm LA Ao Ratio MM 1.6 MV E Point Septal Separation 1.1 cm DOPPLER AV Peak Velocity 182.0 cm/s LVOT Peak Velocity 116.0 cm/s AV Area Cont Eq vti 2.1 cm squared AV Area Cont Eq pk 2.3 cm squared MV E' Velocity 7.0 cm/s TR Peak Velocity 176.0 cm/s TR Peak Gradient 12.4 mmHg TV Peak E Velocity 54.0 cm/s Right Atrial Pressure 3.0 mmHg Pulmonary Artery Systolic Pressu 15.4 mmHg PV Peak Velocity 114.0 cm/s FINDINGS Left Ventricle Left ventricle is normal in size. LV systolic function is normal with EF of 55-60%. No regional wall motion normalities are seen. Grade 1 diastolic dysfunction. Right Ventricle Normal in size and function Right Atrium Normal in size Left Atrium Dilated. Mitral Valve Grossly normal. Mild mitral regurgitation. Aortic Valve Aortic valve is thickened and calcified. Mild aortic regurgitation. Tricuspid Valve Trace tricuspid regurgitation. Insufficient TR jet to calculate RVSP Pulmonic Valve Not well visualized. Mild pulmonic regurgitation Pericardium Normal Aorta Normal in size IVC Appears to be normal CONCLUSIONS LV systolic function is normal with EF of 60-65%. Grade 1 diastolic dysfunction. Left atrial dilation. Mild mitral regurgitation Compared to prior echocardiogram from 2019, no significant changes are seen Lloyd Moe MD (Electronically Signed) Final Date: 11 April 2023 09:33 S
--- NOTE | 2023-03-28 14:30 | USCV_ITS ---
Beatriz Reyes Age: 83 Gender: F : 1940 Exam Date: 03/28/2023 14:17 Ordering Phys: Keyla Blount MD Technologist: CT Exam Location: [facility] – [place] Indication: tia Risk Factors: Previous Vascular Surgery: Right Brachial BP: / Left Brachial BP: / Right Left Velocity (cm/s) Spectral Plaque Velocity (cm/s) Spectral Plaque Syst/Diast Broadening Syst/Diast Broadening 55.20/ 10.10 Prox CCA 70.50 / 14.10 48.90/ 12.40 Mid CCA 69.60 / 15.00 42.20/ 10.10 Distal CCA 53.80 / 14.10 51.30/ 9.90 Prox ICA 41.60 / 9.70 51.30/ 14.50 Mid ICA 48.60 / 17.30 40.80/ 8.40 Distal ICA 57.60 / 11.60 87.00 ECA 42.90 0.93 ICA/CCA 0.82 Antegrade Vertebral Antegrade 50.20/ 10.80 cm/s 38.80/ 10.10 cm/s Bi Subclavian Bi 97.80 123.6 0 FINDINGS Comparison: none available. No significant elevation of systolic or diastolic velocities. Waveforms are normal. Diffuse bilateral scattered calcified plaque and intimal thickening throughout the common carotid arteries and extending through the bifurcation. Antegrade vertebral arteries. CONCLUSIONS Bilateral ICA stenosis less than 50%. Diffuse, mild atherosclerotic plaque. Dr. Jyoti Holley DO (Electronically Signed) Final Date: 28 March 2023 16:18 S
== END 2023-03-28 13:26 | disposition home or self-care (01) ==
LOC: RAD 13:26
PROVIDERS: PCP Nurse Practitioner Family; Visit Provider Internal Medicine
DX: G45.9 Transient cerebral ischemic attack, unspecified (principal); R06.02 Shortness of breath; I51.89 Other ill-defined heart diseases; I34.0 Nonrheumatic mitral (valve) insufficiency
CPT/HCPCS: 93306; 93880

== ENCOUNTER → 2023-06-10 11:49 | Outpatient (BNVA) | payer MEDICARE, SELFPAY | PROVIDERS: PCP Nurse Practitioner Family; Visit Provider Nurse Practitioner Family | DX: R10.9 Unspecified abdominal pain (principal) | CPT/HCPCS: 74018 ==

== ENCOUNTER → 2023-06-14 17:06 | Outpatient (BNVA) | payer MEDICARE, SELFPAY | PROVIDERS: PCP Nurse Practitioner Family; Visit Provider Nurse Practitioner Family | DX: N39.0 Urinary tract infection, site not specified (principal) | CPT/HCPCS: 81003; 87077; 87086 ==

== ENCOUNTER → 2023-09-20 13:26 | Outpatient (BNVA) | payer MEDICARE, SELFPAY | PROVIDERS: PCP Nurse Practitioner Family; Visit Provider Nurse Practitioner Family | DX: M17.11 Unilateral primary osteoarthritis, right knee (principal); M25.461 Effusion, right knee | CPT/HCPCS: 73562 ==

== ENCOUNTER 2023-09-28 16:39 | Outpatient (CLI) | payer MEDICARE, SELFPAY | END 2023-09-28 16:40 | disposition home or self-care (01) | LOC: SPT 16:41 | PROVIDERS: PCP Nurse Practitioner Family; Visit Provider Nurse Practitioner | DX: M25.561 Pain in right knee (principal); M25.562 Pain in left knee | CPT/HCPCS: 20610; 97760; J1100; J2795; J3301; L1812 ==

== ENCOUNTER → 2023-12-30 10:12 | Outpatient (BNVA) | payer MEDICARE, SELFPAY | PROVIDERS: PCP Nurse Practitioner Family; Visit Provider Nurse Practitioner | DX: M17.0 Bilateral primary osteoarthritis of knee (principal) | CPT/HCPCS: 20610; J1100; J2795 ==

== ENCOUNTER → 2024-01-10 10:35 | Outpatient (BNVA) | payer MEDICARE, SELFPAY | PROVIDERS: PCP Nurse Practitioner Family; Visit Provider Nurse Practitioner Family | DX: F41.9 Anxiety disorder, unspecified (principal); I10 Essential (primary) hypertension; E78.5 Hyperlipidemia, unspecified; E03.9 Hypothyroidism, unspecified; E53.8 Deficiency of other specified B group vitamins; E55.9 Vitamin D deficiency, unspecified; D50.9 Iron deficiency anemia, unspecified; Z79.899 Other long term (current) drug therapy | CPT/HCPCS: 80053; 80061; 81003; 82306; 82607; 83036; 83550; 84443; 85025 ==

== ENCOUNTER → 2024-01-17 11:23 | Outpatient (BNVA) | payer MEDICARE, SELFPAY | PROVIDERS: PCP Nurse Practitioner Family; Visit Provider Nurse Practitioner Family | DX: I10 Essential (primary) hypertension (principal); F41.9 Anxiety disorder, unspecified; E78.5 Hyperlipidemia, unspecified; E03.9 Hypothyroidism, unspecified; E53.8 Deficiency of other specified B group vitamins; E55.9 Vitamin D deficiency, unspecified; D64.9 Anemia, unspecified; Z79.899 Other long term (current) drug therapy | CPT/HCPCS: 81003 ==